=== PATIENT | female | born 1955 | race Asian ===

== ENCOUNTER → 2021-07-21 11:38 | Outpatient (CLI) | payer MEDICARE, OTHER, SELFPAY ==
--- NOTE | 2021-07-21 11:43 | DI.RAD.S_ITS ---
PROCEDURE: XR SHOULDER RT MIN 2V INDICATIONS: shoulder strain TECHNIQUE: 3 views of the shoulder were acquired. COMPARISON: None. FINDINGS: Bones: No acute fractures or dislocations. No suspicious bony lesions. Visualized ribs appear intact. Mild acromioclavicular joint osteoarthrosis. Soft tissues: Amorphous calcification posterior to the humeral head is consistent with calcific tendinopathy. IMPRESSION: No acute osseous abnormality. Rotator cuff calcific tendinopathy. Dictated by: Mike Baer M.D. on 07/21/2021 at 16:51 Approved by: Mike Baer M.D. on 07/21/2021 at 16:52
== END ==
PROVIDERS: PCP Internal Medicine; Referring Provider Nurse Practitioner Family; Visit Provider Nurse Practitioner Family
DX: M25.511 Pain in right shoulder (principal)
CPT/HCPCS: 73030

== ENCOUNTER 2021-10-11 12:06 | Emergency (ER) | payer MEDICARE, OTHER, SELFPAY ==
[2021-10-11 12:23] VITALS: BMI 20.7
--- NOTE | 2021-10-11 12:26 | DI.RAD.S_ITS ---
PROCEDURE: XR CLAVICLE RT INDICATIONS: fall right clavical pain TECHNIQUE: 2 views of the clavicle were acquired. COMPARISON: None. FINDINGS: Bones: No fractures or dislocations. No suspicious bony lesions. Soft tissues: No suspicious soft tissue calcifications. Atherosclerotic vascular calcification noted in the aortic arch. IMPRESSION: 1. No fracture or foreign body Approved by: Dante Grant M.D. on 10/11/2021 at 12:38
--- NOTE | 2021-10-11 14:57 | ED_ITS ---
HPI - Fall <Roxanne Schneider PA-C - Last Filed: 10/11/21 18:22> General Chief Complaint: Fall Stated Complaint: Fell down,stated injured clavical Time Seen by Provider: 10/11/21 14:18 History of Present Illness HPI Narrative: Patient is a 66-year-old female presenting with right clavicle and rib pain for 1 day. She was gardening when she was startled by a snake, tripped, and rolled down a hill. She has had increasing inflammation and pain in her right shoulder and rib cage. She denies hitting her head or loss of consciousness from the fall. She also has an abrasion on her right leg from the fall, which she cleaned and has been covering with antibiotic ointment. She has a history of chronic right shoulder pain which she sees PT regularly for. She denies any numbness, tingling, decreased sensation. She has not taken anything for pain and has been putting diclofenac gel on her shoulder. Related Data Previous Rx's Medication Instructions Recorded lidocaine 5 % topical patch 1 patch TOPICAL DAILY PRN #15 ea 10/11/21 Allergies Allergy/AdvReac Type Severity Reaction Status Date / Time No Known Drug Allergies Allergy Unverified 07/21/21 11:28 Review of Systems <Roxanne Schneider PA-C - Last Filed: 10/11/21 18:22> Review of Systems ROS Unobtainable: All systems reviewed & are unremarkable except as noted in HPI and below Constitutional Constitutional: Denies fatigue, Denies fever(s), Denies frequent falls, Denies headache(s) and Denies weakness Eyes Eyes: Denies change in vision, Denies irritation and Denies loss of vision ENT Ears, Nose, Mouth, and Throat: Denies dizziness, Denies headache(s), Denies neck pain and Denies sore throat Cardiovascular Cardiovascular: Denies chest pain, Denies lightheadedness and Denies dyspnea Respiratory Respiratory: Denies cough, Denies dyspnea and Denies wheezing Gastrointestinal Gastrointestinal: Denies abdominal pain, Denies change in bowel habits, Denies diarrhea, Denies nausea and Denies vomiting Genitourinary Genitourinary: Denies hematuria, Denies flank pain, Denies urinary incontinence and Denies urinary urgency Musculoskeletal Musculoskeletal: Denies back pain, Denies muscle weakness, Denies neck pain, Denies numbness and Denies tingling Integumentary/Breasts Skin/Breast: Denies pruritus, Denies erythema, Denies rash and Denies wounds Neurologic Neurologic: Denies behavioral changes, Denies confusion, Denies dizziness, Denies frequent falls, Denies headache(s), Denies loss of vision, Denies numbness, Denies tingling and Denies weakness Psychiatric Psychiatric: Denies anxiety, Denies behavioral changes, Denies confusion, Denies depression, Denies homicidal ideation and Denies suicidal ideation Endocrine Endocrine: Denies fatigue and Denies flushing Hematologic/Lymphatic Hematologic/Lymphatic: Denies easy bruising Allergic/Immunologic Allergic/Immunologic: Denies urticaria and Denies wheezing Patient History <Roxanne Schneider PA-C - Last Filed: 10/11/21 18:22> Social History Smoking Status: Never smoker Smoking Status: Never smoker alcohol intake frequency: 0-2 drinks per day Alcohol type: wine Substance Use Type: does not use Exam <Roxanne Schneider PA-C - Last Filed: 10/11/21 18:22> Narrative Exam Narrative: GENERAL: 66 year old patient appears stated age. Well-developed patient, in mild distress. HEAD: Atraumatic. Normocephalic. EYES: Pupils equal round and reactive. Extraocular motions intact. No scleral icterus. No injection or drainage. ENT: Nose without bleeding, purulent drainage. Throat without erythema, tonsillar hypertrophy or exudate. Airway patent. NECK: Trachea midline. Non tender. C-spine nontender to palpation. Full ROM. CARDIOVASCULAR: Regular rate and rhythm without murmurs, gallops, or rubs. RESPIRATORY: Clear to auscultation. Breath sounds equal bilaterally. No wheezes, rales, or rhonchi. GASTROINTESTINAL: Abdomen soft, non-tender, nondistended. EXTREMITIES: Right anterior shoulder and clavicle tender to palpation with mild swelling, exhibits good range of motion, right anterior ribcage tender to palpation, no bruising noted. Full sensation and strength intact. BACK: Nontender without deformity or crepitance. No flank tenderness. NEURO: AOx3. SKIN: Multiple shallow small cuts covering lower right leg, well cleaned Course <Roxanne Schneider PA-C - Last Filed: 10/11/21 18:22> Orders Ordered: Discontinued Medications Ketorolac Tromethamine (Ketorolac 30 Mg/Ml Vial) 15 mg IM NOW ONE Stop: 10/11/21 14:40 Last Admin: 10/11/21 15:16 Dose: 15 mg Documented by: MARKIE <Fauzia Alva DO - Last Filed: 10/12/21 09:01> Orders Ordered: Discontinued Medications Ketorolac Tromethamine (Ketorolac 30 Mg/Ml Vial) 15 mg IM NOW ONE Stop: 10/11/21 14:40 Last Admin: 10/11/21 15:16 Dose: 15 mg Documented by: MARKIE MDM - Fall <Roxanne Schneider PA-C - Last Filed: 10/11/21 18:22> Imaging Data Extremity x-ray #1: Radiologist's Impression: [place] [address] XRay Report Signed Patient: Radha Tucker MR#: [id number] : 1955 Acct:[id number] Age/Sex: 66 / F Date of Service: 10/11/21 Loc: ED Accession Number: [id number] ?? Procedure: XR clavicle RT Ordering Provider: Fauzia Alva D.O. PROCEDURE:? XR CLAVICLE RT ? INDICATIONS:? fall right clavical pain ? TECHNIQUE:? 2 views of the clavicle were acquired.? ? COMPARISON:? None. ? FINDINGS:? ? Bones:? No fractures or dislocations.? No suspicious bony lesions.? ? Soft tissues:? No suspicious soft tissue calcifications.? Atherosclerotic vascular calcification noted in the aortic arch. ? IMPRESSION:? ? 1. No fracture or foreign body ? ? ? Approved by: Dante Grant M.D. on 10/11/2021 at 12:38? [facility] Narrative Medical decision making narrative: Patient is a 66-year-old female presenting with right clavicle and rib pain for 1 day after a fall. Her x-ray showed no sign of fracture. Based on my physical exam, it is likely that this patient is suffering from multiple muscle strains. She was instructed to rest and ice her right shoulder and to take ibuprofen as needed for pain and inflammation relief and to continue using her diclofenac gel. She was given a Toradol injection and prescribed lidocaine patches for pain as needed. She suffers from chronic right shoulder pain and will be returning to her routine physical therapy in 2 weeks. Findings and discharge diagnosis discussed with patient/family followed by verbalization of understanding Return precautions discussed with patient/family whom verbalize understanding. Discharge Plan Departure Patient Disposition: Home Clinical Impression: Rib pain on right side, Muscle strain of anterior chest wall Activity Restrictions/Additional Instructions: *You have been diagnosed with a right shoulder strain. You should take ibuprofen as needed with food to help with pain and inflammation control. You were also given a prescription for lidocaine patches that you may use for pain. You should rest and ice the shoulder as needed. *What to do: *Please continue to take your regular medications as directed. [X] New medication prescriptions sent to your pharmacy: [[facility]] [ ] New medication written as a paper prescription [ ] No new medications given *Please follow up with your primary care provider in 2-3 days, call for an appointment. Let them know you were seen in the Emergency Department and that we ask that you be seen in follow up. We will electronically transmit a record of today's note if your PCP is in our system *If you do not have a primary care provider please contact the [facility] Center at [phone] and they can help get you set up with a doctor in the community. *Return to Emergency Department if you should have any new, worsening or concerning symptoms, such as [fever greater than 101 F, shaking chills, worsening pain, persistent vomiting or other bothersome symptoms] Prescriptions: New lidocaine 5 % adhesive patch,medicated 1 patch topical DAILY PRN (Reason: pain) Qty: 15 0RF Rx Instructions: leave on most painful area for up to 12 hrs Referrals: Ciara Delgado MD [Primary Care Provider] - <Fauzia Alva DO - Last Filed: 10/12/21 09:01> Cosign ED Attending Alecature Attestation: I was immediately available in the department for consultation. Documentation has been reviewed. I agree with assessment and plan.
[2021-10-11] MEDS: KETOROLAC 30 MG/ML VIAL 15 MG IM (15:16)
== END 2021-10-11 15:24 | disposition home or self-care (01) ==
PROVIDERS: Emergency Provider Physician Assistant; PCP Internal Medicine
DX: S29.011A Strain of muscle and tendon of front wall of thorax, initial encounter (principal); M25.511 Pain in right shoulder; R07.81 Pleurodynia; W17.89XA Other fall from one level to another, initial encounter
CPT/HCPCS: 73000; 96372; 99283; J1885

== ENCOUNTER 2023-09-09 12:34 | Emergency (ER) | payer MEDICARE, OTHER, SELFPAY ==
[2023-09-09 12:37] VITALS: BP 129/71; PULSE 82; RESP 16; TEMP 36.8; O2SAT 99; BMI 20.7
--- NOTE | 2023-09-09 12:44 | DI.RAD.S_ITS ---
PROCEDURE: XR HIP W PEL IF DONE RT 2V INDICATIONS: increasing pain TECHNIQUE: AP pelvis with lateral view(s) of the right hip(s). COMPARISON: None. FINDINGS: Bones: No fractures or dislocations. Pelvic ring appears intact. No suspicious bony lesions. Soft tissues: The visualized bowel gas pattern is normal. No suspicious soft tissue calcifications. Right calcific tendinitis. IMPRESSION: No acute bony abnormality. Dictated by: Madhavi Corley M.D. on 09/09/2023 at 14:14 Approved by: Madhavi Corley M.D. on 09/09/2023 at 14:14
--- NOTE | 2023-09-09 13:43 | ED_ITS ---
HPI - Extremity Problem <RENA Connell - Last Filed: 09/09/23 14:31> General Chief complaint: Extremity Problem,Nontraumatic Stated complaint: hip pain Time Seen by Provider: 09/09/23 12:44 Source: patient Mode of arrival: Ambulatory History of Present Illness HPI Narrative: 68-year-old female, never smoker, was brought to the emergency department with right hip pain x2 weeks. Patient endorses a ground level fall approximately 1 month ago. Patient states the right hip has constantly ached and worsens with prolonged walking or climbing stairs. Home treatment has included a leave, which upset her stomach, and a lidocaine patch with minimal improvement. Patient does endorse a long walk last evening and subsequent right leg cramping last night that caused her to get out of bed and stretch it. Related Data Previous Rx's Medication Instructions Recorded lidocaine 5 % topical patch 1 patch topical DAILY PRN pain #15 10/11/21 ea diclofenac sodium 3 % topical gel 1 applic topical BID PRN muscle 09/09/23 pain #100 grams Allergies Allergy/AdvReac Type Severity Reaction Status Date / Time No Known Drug Allergies Allergy Unverified 07/21/21 11:28 Review of Systems <RENA Connell - Last Filed: 09/09/23 14:31> Review of Systems Narrative: Narrative: See HPI. GENERAL: Denies chills, fatigue, fever, sweats. HEENT: Denies sinus pain, ear pain, sore throat, difficulty swallowing, dizziness. RESPIRATORY: Denies dyspnea, cough, wheezing, sputum. CARDIOVASCULAR: Denies chest pain, palpitations, edema. GASTROINTESTINAL: Denies nausea, vomiting, abdominal pain, diarrhea, constipation. : Denies dysuria, frequency, incontinence, hematuria, urinary retention, flank pain. MSK: Denies weakness. Endorses right hip pain. SKIN: Denies rash, skin lesions, or pruritis. NEUROLOGIC: Denies weakness, dizziness, headache, numbness, confusion. PSYCHIATRIC: No concerning psychosocial issues. Patient History <RENA Connell - Last Filed: 09/09/23 14:31> Social History Smoking Status: Never smoker Smoking Status: Never smoker alcohol intake frequency: 0-2 drinks per day Alcohol type: wine Substance Use Type: does not use Exam <RENA Connell - Last Filed: 09/09/23 14:31> Narrative Exam Narrative: Exam Narrative: GENERAL: This is a well-nourished, well-developed patient, in no acute distress. HEAD: Atraumatic. Normocephalic. EYES: Pupils equal round and reactive. No scleral icterus, injection or drainage. CARDIOVASCULAR: Regular rate and rhythm without murmurs, peripheral pulses intact, cap refill <2 sec. RESPIRATORY: Breath sounds equal and clear bilaterally. No wheezes, rales, or rhonchi. No cough. No increased respiratory effort. No accessory muscle use. GASTROINTESTINAL: Abdomen soft, non-tender, nondistended without guarding or rebound. No suprapubic pain. MSK: Moves all extremities. Normal range of motion, no clubbing or edema. Neurovascularly intact. NEURO: A&O x 3. SKIN: Warm, dry, no rashes or lesions noted. Hip: There is no obvious deformity. There is no redness, swelling or wound. Able to bear weight on each leg independently. Tenderness noted over greater trochanter but no tenderness over ischial spine or SI joint. Active flexion and extension as well as lateral excursion are full and without pain. There is no pain along the ilio-tibial band. Internal and external rotation is within normal range Initial Vital Signs Initial Vital Signs: Vital Signs Temperature 98.3 F 09/09/23 12:37 Pulse Rate 82 09/09/23 12:37 Respiratory Rate 16 09/09/23 12:37 Blood Pressure 129/71 09/09/23 12:37 Pulse Oximetry 99 09/09/23 12:37 Oxygen Delivery Method Room Air 09/09/23 12:37 Reviewed <Terry Dewey DO - Last Filed: 09/09/23 15:01> Initial Vital Signs Initial Vital Signs: Vital Signs Temperature 98.3 F 09/09/23 12:37 Pulse Rate 82 09/09/23 12:37 Respiratory Rate 16 09/09/23 12:37 Blood Pressure 129/71 09/09/23 12:37 Pulse Oximetry 99 09/09/23 12:37 Oxygen Delivery Method Room Air 09/09/23 12:37 Course <RENA Connell Last Filed: 09/09/23 14:31> Orders Ordered: ED Orders 09/09/23 12:44 XR hip w pel if done RT 2V Stat Vital Signs Vital signs: Vital Signs - 8 hr 09/09/23 12:37 09/09/23 14:47 Temperature 98.3 F Pulse Rate 82 80 Respiratory Rate 16 16 Blood Pressure 129/71 127/69 Pulse Oximetry 99 100 Oxygen Delivery Method Room Air Room Air <Terry Dewey DO - Last Filed: 09/09/23 15:01> Orders Ordered: ED Orders 09/09/23 12:44 XR hip w pel if done RT 2V Stat Vital Signs Vital signs: Vital Signs - 8 hr 09/09/23 12:37 09/09/23 14:47 Temperature 98.3 F Pulse Rate 82 80 Respiratory Rate 16 16 Blood Pressure 129/71 127/69 Pulse Oximetry 99 100 Oxygen Delivery Method Room Air Room Air MDM - Extremity (Nontraumatic) <RENA Connell - Last Filed: 09/09/23 14:31> Differential Diagnosis Differential diagnosis: Likely other (Hip fracture/ strain) Imaging Data Extremity x-ray #1: Radiologist's Impression: [address] [address] XRay Report Signed Patient: Radha Tucker MR#: [id number] : 1955 Acct:[id number] Age/Sex: 68 / F Date of Service: 09/09/23 Loc: ED Accession Number: [id number] Procedure: XR hip w pel if done RT 2V Ordering Provider: Terry Ventura PROCEDURE: XR HIP W PEL IF DONE RT 2V INDICATIONS: increasing pain TECHNIQUE: AP pelvis with lateral view(s) of the right hip(s). COMPARISON: None. FINDINGS: Bones: No fractures or dislocations. Pelvic ring appears intact. No suspicious bony lesions. Soft tissues: The visualized bowel gas pattern is normal. No suspicious soft tissue calcifications. Right calcific tendinitis. IMPRESSION: No acute bony abnormality. Dictated by: Madhavi Corley M.D. on 09/09/2023 at 14:14 Approved by: Madhavi Corley M.D. on 09/09/2023 at 14:14 [facility] Narrative Medical decision making narrative: 68-year-old female with right hip pain. Assessment was unremarkable. X-ray revealed no acute bony abnormality with right calcific tendinitis. Will discharge patient home with instructions for supportive care that includes rest, warmer cool compresses to the affected site, gentle range of motion stretching exercises and anti-inflammatories. Will prescribe Voltaren gel to be used as needed. Discussed plan of care and return precautions with patient and , who verbalized understanding and were agreeable with course of action. Discharge Plan Departure Patient Disposition: Home Clinical Impression: Acute pain of right hip Instructions: DI for Hip Pain Activity Restrictions/Additional Instructions: *You have been diagnosed with right hip tendonitis. It was a pleasure meeting you today. Your x-ray was normal and shows a calcific tendonitis. Treatment for this is supportive in nature that includes rest, hot or cold compresses to the affected site, gentle range of motion stretching exercises and NSAIDs. Please use the topical ointment as needed. Please return to the emergency department for any worsening symptoms that includes loss of control of bowel or bladder, inability to bear weight or numbness and tingling of your leg. *What to do: *Please continue to take your regular medications as directed. [x ] New medication prescriptions sent to your pharmacy: [[facility]] [ ] New medication written as a paper prescription [ ] No new medications given *Please follow up with your primary care provider in 2-3 days, call for an appointment. Let them know you were seen in the Emergency Department and that we ask that you be seen in follow up. We will electronically transmit a record of today's note if your PCP is in our system *If you do not have a primary care provider please contact the [facility] Resource line at [phone]. They will ask some questions about your medical history and help get you set up with a doctor in the community. ? Return to ER if you should have any new, worsening or concerning symptoms, such as worsening pain, severe headache, confusion, chest pain, difficulty breathing, fever greater than 101 F, shaking chills, persistent vomiting to the point that you cannot drink fluids, or other new or worsening symptoms. Prescriptions: New diclofenac sodium 3 % gel 1 applic topical BID PRN (Reason: muscle pain) Qty: 100 0RF No Action lidocaine 5 % adhesive patch,medicated 1 patch topical DAILY PRN (Reason: pain) Qty: 15 0RF Rx Instructions: leave on most painful area for up to 12 hrs Referrals: Ciara Delgado MD [Primary Care Provider] - Stand Alone Forms: Patient Portal/API ED Sign-out <Terry Dewey DO - Last Filed: 09/09/23 15:01> Cosign ED Attending Cosignature Attestation: Dr Dewey Co-Sign Statement: I was available for consultation during this patient's emergency department visit. This chart is signed by myself for administrative purposes only. I did not have direct contact with this patient during this visit. They were seen independently by the APC.
[2023-09-09 14:47] VITALS: BP 127/69; PULSE 80; RESP 16; O2SAT 100
== END 2023-09-09 14:48 | disposition home or self-care (01) ==
PROVIDERS: Emergency Provider Registered Nurse; PCP Internal Medicine
DX: M25.551 Pain in right hip (principal)
CPT/HCPCS: 73502; 99281; 99283

== ENCOUNTER → 2023-09-29 07:53 | Outpatient (CLI) | payer MEDICARE, OTHER, SELFPAY ==
--- NOTE | 2023-09-29 07:56 | DI.MG.S_ITS ---
UNILATERAL LEFT DIGITAL DIAGNOSTIC MAMMOGRAM 3D/2D WITH ADDITIONAL VIEWS: 09/29/2023 CLINICAL: Additional evaluation requested from prior study. Comparison is made to exams dated: 09/08/2023 mammogram, 07/30/2016 mammogram, and 01/30/2015 mammogram - outside facility. There are scattered areas of fibroglandular density in the left breast (category b / 25%-50% glandular tissue). The previously seen architectural distortion in the left breast is no longer visualized, presumably secondary to superimposed fibroglandular breast tissue on the prior exam. No significant masses, calcifications, or other findings are seen in the breast. IMPRESSION: NEGATIVE There is no mammographic evidence of malignancy. Return to annual mammogram screening schedule is recommended. Based on the Tyrer Cuzick model (a risk assessment model) the patient's lifetime risk is 4.9% and her 10 year risk is 2.9%. According to the ACR, ACS, and NCCN guidelines, an annual breast MRI exam along with mammogram is recommended if the patient's lifetime risk is 20% or greater. This exam was interpreted at Station ID: [id number]. NOTE: For mammograms, a report in lay terms will be sent to the patient. Approximately 15% of breast malignancies will not be visualized mammographically. In the management of a palpable breast mass, a negative mammogram must not discourage biopsy of a clinically suspicious lesion. Electronically Signed By: Mike john/carrillo:09/29/2023 09:05:41 letter sent: Normal Exam ACR BI-RADS Category 1: Negative [id number]
== END ==
PROVIDERS: PCP Nurse Practitioner Family; Referring Provider Nurse Practitioner Family; Visit Provider Nurse Practitioner Family
DX: R92.8 Other abnormal and inconclusive findings on diagnostic imaging of breast (principal); R92.322 Mammographic fibroglandular density, left breast
CPT/HCPCS: 77065; G0279

== ENCOUNTER → 2024-05-02 07:58 | Outpatient (CLI) | payer MEDICARE, OTHER, SELFPAY ==
--- NOTE | 2024-05-02 08:00 | DI.US.S_ITS ---
PROCEDURE: US ABDOMEN LIMITED INDICATIONS: ELEVATED LIVER ENZYMES TECHNIQUE: Real-time focused scanning was performed of the abdomen, with image documentation. COMPARISON: None. FINDINGS: Liver measures 12.2 cm with steatosis. Gallbladder is unremarkable. Common bile duct measures 4.7 mm. Pancreas is unremarkable. IMPRESSION: Mild hepatic steatosis. Dictated by: Madhavi Corley M.D. on 05/02/2024 at 16:32 Approved by: Madhavi Corley M.D. on 05/02/2024 at 16:32
== END ==
LOC: US 07:59
DX: R94.5 Abnormal results of liver function studies (principal); K76.0 Fatty (change of) liver, not elsewhere classified
CPT/HCPCS: 76705

== ENCOUNTER → 2024-09-13 07:47 | Outpatient (CLI) | payer MEDICARE, OTHER, SELFPAY ==
--- NOTE | 2024-09-13 07:49 | DI.MG.S_ITS ---
MM screening mammo BI: 09/13/2024. BI-RADS: 2 CLINICAL: 69-year old female for bilateral screening mammogram. Tyrer-Cuzick lifetime risk of 1.7%. No personal or first-degree family history of breast cancer. The patient had a prior right breast biopsy. PRIOR EXAMS 09/29/2023, 09/05/2023, outside films 07/04/2019, 01/30/2015. MAMMOGRAPHY TECHNIQUE: 2D and 3D (tomosynthesis) digital mammographic views obtained, with additional images as needed for full coverage. Current study was also evaluated with a Computer Aided Detection (CAD) system. DENSITY B. There are scattered areas of fibroglandular density. MAMMOGRAPHY FINDINGS Right: Benign-appearing post-surgical changes noted on the right. There are no suspicious masses, calcifications, or other findings in the breast. No significant change from comparison. Left: There are no suspicious masses, calcifications, or other findings in the breast. No significant change from comparison. IMPRESSION: * No evidence of malignancy with benign findings. RECOMMENDATIONS Bilateral * Annual screening mammography. OVERALL ASSESSMENT CATEGORY BI-RADS-2: Benign. The [employer] recommends annual screening mammography beginning at age 40 for women with average risk of breast cancer. ELECTRONICALLY SIGNED: Mike Baer M.D. on 09/20/2024 at 03:44:34 PM PT Interpreting Station ID: [id number]
== END ==
LOC: MAMMO 07:48
DX: Z12.31 Encounter for screening mammogram for malignant neoplasm of breast (principal)
CPT/HCPCS: 77063; 77067

== ENCOUNTER → 2025-04-20 10:31 | Outpatient (CLI) | payer MEDICARE, OTHER, SELFPAY ==
--- NOTE | 2025-04-20 10:34 | DI.RAD.S_ITS ---
PROCEDURE: XR DEXA AXIAL SKELETON INDICATIONS: Tam Segal COMPARISON: None. FINDINGS: Lumbar Spine (L3 and L4 excluded due to increased density): Bone mineral density 0.841 g/cm2, T score -1.3, baseline. Left Femoral Neck: Bone mineral density is 0.726 g/cm2, T score -1.1. Left Hip: Bone mineral density 0.871 g/cm2, T score -0.6, baseline. Fracture Risk Calculation (when applicable): Alcohol use reported. 10-year fracture risk of a major osteoporotic fracture 9.8 percent and of a hip fracture 1.6 percent. (T score greater or equal to -1.0 to: NORMAL) (T score from -1.1 to -2.4: OSTEOPENIA) (T score less than or equal to -2.5: OSTEOPOROSIS) IMPRESSION: Osteopenia. Follow-up guidelines as follows: Osteoporosis: Consider a repeat DEXA and Vertebral Fracture Assessment (VFA) exam in 2 years or sooner if medically necessary, to reassess this patient's status. Osteopenia: Consider a repeat DEXA in 2-3 years to reassess this patient's status, or if there is a new clinical indication. Normal: Consider a repeat DEXA in 5 years or sooner, or if there is a new clinical indication. All treatment decisions require clinical judgment and consideration of individual patient factors, including patient preferences, comorbidities, previous drug use, risk factors not captured in the FRAX model (e.g., frailty, falls, vitamin D deficiency, increased bone turnover, interval significant decline in bone density ) and possible under- or over-estimation of fracture risk by FRAX. In addition, the NOF Guide recommends that FDA-approved medical therapies be considered in postmenopausal women and men age >= 50 years with a: * Hip or vertebral (clinical or morphometric) fracture * T-score of <=-2.5 at the spine or hip * Ten-year fracture probability by FRAX of >= 3% for hip fracture or >=20% for major osteoporotic fracture. Dictated by: Kenn Kirk M.D. on 04/20/2025 at 16:47 Approved by: Kenn Kirk M.D. on 04/20/2025 at 16:48
== END ==
LOC: RAD 10:32
DX: Z13.820 Encounter for screening for osteoporosis (principal); M85.852 Other specified disorders of bone density and structure, left thigh; Z78.0 Asymptomatic menopausal state
CPT/HCPCS: 77080